=== PATIENT | male | born 1970 | race Caucasian/White ===

== ENCOUNTER 2017-01-19 12:19 | Emergency (ER) | payer OTHER ==
[~2017-01-19] VITALS: Ht 177.8 cm; Wt 113.4 kg
[~2017-01-19 12:19] MED LIST: CYCLOBENZAPRINE10 MG PO; IBUPROFEN600 MG PO; NAPROSYN500 MG PO; NAPROXEN500 MG PO; NORCO 5-325 TA1 EACH PO; TRAMADOL HCL50 MG PO
[2017-01-19] MEDS ORDERED: BACLOFEN20 MG PO (12:44)
[2017-01-19] MEDS ORDERED: METHYLPREDNISOLO4 M1 PO (12:44)
== END 2017-01-19 13:25 | disposition home or self-care (01) ==
LOC: ED 12:19
DX: S39.011A Strain of muscle, fascia and tendon of abdomen, initial encounter (principal); F17.200 Nicotine dependence, unspecified, uncomplicated; X58.XXXA Exposure to other specified factors, initial encounter
CPT/HCPCS: 99283

== ENCOUNTER 2017-04-05 12:35 | Emergency (ER) | payer OTHER ==
[~2017-04-05] VITALS: Ht 177.8 cm; Wt 113.4 kg
[~2017-04-05 12:35] MED LIST changes: +BACLOFEN20 MG PO; +METHYLPREDNISOLO4 M1 PO
[2017-04-05] MEDS ORDERED: NORCO 5-325 TA1 EACH PO (14:50)
[2017-04-05] MEDS ORDERED: ONDANSETRON ODT8 MG PO (16:00)
[2017-04-05] MEDS ORDERED: PROMETHAZINE HC25 M1 PO (16:00)
[2017-04-05] MEDS ORDERED: DICYCLOMINE HCL20 MG PO (16:00)
== END 2017-04-05 16:34 | disposition home or self-care (01) ==
LOC: ED 12:35
DX: R10.13 Epigastric pain (principal); F17.200 Nicotine dependence, unspecified, uncomplicated; Z79.899 Other long term (current) drug therapy
CPT/HCPCS: 80053; 83690; 85025; 96361; 96374; 96375; 96376; 99283; J1170; J2405; J2550; J7030

== ENCOUNTER 2017-04-07 13:13 | Observation (INO) | payer OTHER ==
[~2017-04-07] VITALS: Ht 177.8 cm; Wt 117.1 kg
[~2017-04-07 13:13] MED LIST changes: +DICYCLOMINE HCL20 MG PO; +ONDANSETRON ODT8 MG PO; +PROMETHAZINE HC25 M1 PO
--- NOTE | 2017-04-07 19:15 | NUR ---
SHIFT REPORT RECEIVED FROM THIEN NATHAN. PT IS ALERT/ORIENTED, REPORTS ABDOMINAL PAIN. IVF INFUSING WNL.
--- NOTE | 2017-04-07 19:30 | NUR ---
PT SHIFT REPORT RECIEVED FROM DAY SHIFT RN. ALL QUESTIONS ANSWERED. NO OTHER ISSUES AT THIS TIME. WILL CONTINUE TO CLOSELY MONITOR. PT SITTING UP WATCHING TV IN BED.
--- NOTE | 2017-04-07 20:00 | NUR ---
ASSESSMENT COMPLETED. ALERT/ORIENTED, REPORTS 7/10 ABDOMINAL PAIN AND NAUSEA. PRN ZOFRAN AND 1MG IV DILAUDID ADMINISTERED. LUNGS CLEAR/DIMINISHED THROUGHOUT, RA. HR REGULAR. BOWEL TONES ACTIVE, ABDOMEN IS SOFT AND TENDER. CMS INTACT. PT HAS SCAR/SCAB TO FOREHEAD, OTHERWISE SKIN APPEARS INTACT. PT DENIES FURTHER REQUESTS AT THIS TIME, WILL CONTINUE TO MONITOR.
--- NOTE | 2017-04-07 20:00 | NUR ---
PT SHIFT ASSESSMENT COMPLETED. PT RESTING IN BED. LUNGS CLEAR AND DIMINISHED IN BASES. PT ON CHRONIC OXYGEN CURRENTLY AT HOME AMOUNT OF 2L VIA NC WITH SPO2 98-100%. BOWEL TONES ACTIVE. NO BM AT THIS TIME. EDEMA IS CONTINUING TO IMPROVE. PT REPOSITIONED. CALL LIGHT IN REACH. WILL CONTINUE TO MONTIOR.
--- NOTE | 2017-04-07 21:25 | NUR ---
PT STATES THAT HIS PAIN HAS IMPROVED TO 4/10 AND STATES THAT IT FEELS TOLERABLE AT THIS TIME. FRESH ICE WATER PROVIDED PER REQUEST. PT SITTING UP AND WATCHING TV, DENIES FURTHER REQUESTS AT THIS TIME.
--- NOTE | 2017-04-07 22:24 | NUR ---
ALL MEDICATIONS GIVE. ALL 3 CENTRAL LINE PORTS HEP LOCKED AT THIS TIME. PT IS READY FOR BED. REPOSITIONED FOR COMFORT AND TURNED LIGHTS DOWN AT THIS TIME. CALL LIGHT IN HAND. WILL CONTINUE TO CLOSELY MONITOR.
--- NOTE | 2017-04-07 22:57 | NUR ---
PT CALLED TO REQUEST PAIN MEDICATION, STATES ABDOMINAL PAIN IS 7/10. 1MG IV DILAUDID ADMINISTERED. WILL CONTINUE TO MONITOR.
--- NOTE | 2017-04-07 23:50 | NUR ---
ASSESSMENT COMPLETED. PT STATES THAT PAIN IS IMPROVED SINCE RECEIVING PAIN MEDICATION. DENIES NAUSEA. NO OTHER CHANGES FROM PREVIOUS ASSESSMENT, WILL CONTINUE TO MONITOR.
--- NOTE | 2017-04-08 01:21 | NUR ---
PLACED PT ON 1L O2 VIA NC. WHILE SLEEPING, WOULD BREIFLY DESAT INTO THE 80'S, AND THEN RECOVER. PT STATES HE DOES HAVE SOME SLEEP APNEA, WILL SEE IF 1L KEEPS SATS >90%. WILL CONTINUE TO MONITOR. PT STATES PAIN IS ABOUD 4-5/10 AT THIS TIME, DENIES NEED FOR PAIN MEDICATION AT THIS TIME.
--- NOTE | 2017-04-08 03:05 | NUR ---
PT SLEEPING, RR: 16, SPO2:98% ON 1L VIA NC. NO APPARENT DISTRESS. WILL CONTINUE TO MONITOR.
--- NOTE | 2017-04-08 04:12 | NUR ---
ASSESSMENT COMPLETED. NO CHANGES FROM PREVIOUS ASSESSMENT. PT ACCIDENTALLY PULLED OUT IV ROLLING OVER IN BED, CATHETER TIP INTACT. 20G IV PLACED ON SECOND ATTEMPT IN RIGHT WRIST. PT TOLERATED WELL. PT REPORTS 7/10 ABDOMINAL PAIN, 1MG IV DILAUDID ADMINISTERED. PT DENIES NAUSEA, CHICKEN BROTH PROVIDED PER REQUEST. PT PROVIDED WITH TOOTHBUSH/PASTE FOR AM CARE. PT DENIES FURTHER REQUESTS AT THIS TIME. WILL CONTINUE TO MONITOR.
--- NOTE | 2017-04-08 04:22 | NUR ---
AFTER DRINKING ~100ML OF CHICKEN BROTH PT BEGAN TO VOMIT CLEAR EMESIS, 550ML. PRN ZOFRAN ADMINISTERED. COOL CLOTH PROVIDED. WILL CONTINUE TO MONITOR.
--- NOTE | 2017-04-08 05:39 | NUR ---
PT TRANSFERRED TO MS. AMBULATED WITH SENIOR SOFTWARE TEST ENGINEER, STEADY ON FEET. BELONGINGS WITH PT.
--- NOTE | 2017-04-08 05:52 | NUR ---
0540 - pt transferred to ky room 125 from icu at this time, pt ambuklated from room 130 to room 125 w/o problems, ivf infusing
--- NOTE | 2017-04-08 05:57 | NUR ---
pt medicated with phenergan 12.5mg iv , 200cc emesis, clear phlegm. pt sittin gup in chair. no other c/o pain, healing scabbed over over mid forehead intact
--- NOTE | 2017-04-08 06:33 | NUR ---
PT IN BED. TRANSFERRED TO BED FROM CHAIR W/O ASSIST. NO FURTHER EPISODES OF EMESIS, WATCHING TV
--- NOTE | 2017-04-08 08:30 | NUR ---
PATIENT UP, RATES PAIN 5/10 ON PAIN SCALE IN ABDOMEN. NO EMESIS. APPEARS CALM AND APPROPRIATE. FULL BODY ASSESMENT DONE.
--- NOTE | 2017-04-08 09:42 | NUR ---
PT AWAKE IN BED. FRESH ICE WATER. AM CARE. SET UP FOR SHOWER. [facility]
== END 2017-04-08 11:50 | disposition home or self-care (01) ==
LOC: ED 13:13 → CCU 13:14 → MS 04-08 05:20
PROVIDERS: ADMIT Internal Medicine
DX: R10.9 Unspecified abdominal pain (principal); E80.6 Other disorders of bilirubin metabolism; E86.0 Dehydration; R11.2 Nausea with vomiting, unspecified; F17.200 Nicotine dependence, unspecified, uncomplicated; E66.01 Morbid (severe) obesity due to excess calories; Z68.37 Body mass index [BMI] 37.0-37.9, adult
CPT/HCPCS: 36415; 74177; 76705; 80053; 80074; 81001; 82248; 83605; 83690; 83735; 84100; 85025; 87522; 96361; 96374; 96375; 96376; 99291; G0378; J1170; J2405; J2550; J7030; Q9967

== ENCOUNTER 2017-06-10 11:58 | Emergency (ER) | payer OTHER ==
[~2017-06-10] VITALS: Ht 177.8 cm; Wt 117.1 kg
== END 2017-06-10 12:15 | disposition home or self-care (01) ==
LOC: ED 11:58
DX: M25.511 Pain in right shoulder (principal); V00.121A Fall from non-in-line roller-skates, initial encounter

== ENCOUNTER 2017-07-29 10:19 | Emergency (ER) | payer OTHER ==
[~2017-07-29] VITALS: Ht 177.8 cm; Wt 117.1 kg
[2017-07-29] MEDS ORDERED: KEFLEX500 MG PO (11:15)
[2017-07-29] MEDS ORDERED: NORCO 5-325 TA1 EACH PO (11:17)
== END 2017-07-29 11:25 | disposition home or self-care (01) ==
LOC: ED 10:19
DX: S62.521B Displaced fracture of distal phalanx of right thumb, initial encounter for open fracture (principal); F17.200 Nicotine dependence, unspecified, uncomplicated; W22.8XXA Striking against or struck by other objects, initial encounter
CPT/HCPCS: 73140; 90471; 90715; 99283

== ENCOUNTER 2019-05-11 17:20 | Emergency (ER) | payer OTHER ==
[~2019-05-11] VITALS: Ht 177.8 cm; Wt 109.8 kg
[~2019-05-11 17:20] MED LIST changes: +KEFLEX500 MG PO; +OMEPRAZOLE20 MG PO; +ZOFRAN4 MG PO
[2019-05-11] MEDS ORDERED: MAALOX ADVANCE355 ML PO ×2 (17:33→17:34)
[2019-05-11] MEDS ORDERED: ONDANSETRON ODT8 MG PO (19:30)
== END 2019-05-11 19:50 | disposition home or self-care (01) ==
LOC: ED 17:20
DX: K29.00 Acute gastritis without bleeding (principal); F17.200 Nicotine dependence, unspecified, uncomplicated
CPT/HCPCS: 80053; 83690; 85025; 96374; 99284-25; 99406; J2405; J7030

== ENCOUNTER 2020-01-08 06:24 | Emergency (ER) | payer OTHER ==
[~2020-01-08] VITALS: Ht 177.8 cm; Wt 117.9 kg
[~2020-01-08 06:24] MED LIST changes: +MAALOX ADVANCE355 ML PO
--- NOTE | 2020-01-09 11:00 | EKG ---
[facility] [address] [facility] [place] [address] Signed Normal sinus rhythm with sinus arrhythmia Normal ECG No previous ECGs available Confirmed by ELIE VALADEZ MD ([id number]) on 01/09/2020 10:59:55 AM Electronically Signed By: ELIE VALADEZ MD 01/09/20 1100 PATIENT NAME: TIERRA GONZALEZ Electrocardiogram DATE OF : 70 PHYSICIAN: ELIE VALADEZ MD REPORT #: [id number] REPORT IS CONFIDENTIAL AND NOT TO BE RELEASED WITHOUT AUTHORIZATION
== END 2020-01-08 09:26 | disposition home or self-care (01) ==
LOC: ED 06:24
DX: R11.2 Nausea with vomiting, unspecified (principal); F12.90 Cannabis use, unspecified, uncomplicated; R10.33 Periumbilical pain
CPT/HCPCS: 71045; 80053; 83735; 84484; 85025; 93005; 93010; 96374; 96375; 96376; 99285-25; J1885; J2405; J2765; J7030

== ENCOUNTER 2020-12-30 06:48 | Emergency (ER) | payer OTHER ==
[~2020-12-30] VITALS: Ht 177.8 cm; Wt 117.9 kg
== END 2020-12-30 09:43 | disposition home or self-care (01) ==
LOC: ED 06:48
DX: K40.90 Unilateral inguinal hernia, without obstruction or gangrene, not specified as recurrent (principal); R31.9 Hematuria, unspecified
CPT/HCPCS: 74176; 80053; 81001; 85025; 99284-25

== ENCOUNTER 2021-11-21 07:55 | Day surgery (SDC) | payer OTHER ==
[~2021-11-21] VITALS: Ht 177.8 cm; Wt 111.4 kg
[~2021-11-21 07:55] MED LIST changes: +OMEPRAZOLE20 M1 PO
--- NOTE | 2021-11-21 11:55 | NUR ---
11/21/21 1155 Sheets,Melissa 1149 PT ARRIVED TO PACU ON 10L VIA MASK WITH ORAL AIRWAY IN PLACE, JAW THRUST USED TO MAINTAIN AIRWAY. PT NONAROUSABLE. 1152 PT HEAD TURNED TO SIDE AND HOB INCREASED, JAW THRUST NO LONGER NEEDED TO MAINTAIN AIRWAY. VSS.
--- NOTE | 2021-11-21 12:31 | NUR ---
1220 PATIENT INTO DAY SURGERY. REPORT RECIEVED FROM THIEN STINSON. PATIENT BREATHING EQUAL AND UNLABORED. AWAKE AND ORIENTED. OXYGEN SATURATIONS ABOVE 95 ON ROOM AIR. PATIENT COMPLAINS OF 5/10 PAIN AT SURGICAL SITE. PATIENT DENIES NEEDING PAIN MEDICATION. ICE PACK APPLIED. SCD'S ON. DRESSING CLEAN, DRY AND INTACT. NO QUESTIONS AT THIS TIME. CALL LIGHT WITHIN REACH NO FUTHER NEEDS.
--- NOTE | 2021-11-21 13:25 | NUR ---
1320 PATIENT MET DISCHARGE CRITERIA. IV D/C'D WNL. PATIENT TOLERATED DRESSING SELF. PATIENT WHEELED OUT OF FACILITY TO PRIVATE AUTO AND AWAITING
--- NOTE | 2021-11-21 21:28 | OR ---
[facility] [address] [place], [place] [address] Signed DATE OF OPERATION: 11/21/2021 SURGEON: Sandra Rosas MD PREOPERATIVE DIAGNOSIS: Incarcerated right inguinal hernia on CT scan. POSTOPERATIVE DIAGNOSIS: Moderately large incarcerated indirect right inguinal hernia of fat. PROCEDURE: Right Ventura onlay mesh inguinal herniorrhaphy. ESTIMATED BLOOD LOSS: None. INDICATIONS: Hakan is a 50-year-old obese gentleman, asked to see me actually for both an umbilical and right inguinal hernia. His insurance approved the right inguinal hernia only. 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 He said last summer he stepped off the pavement, felt pain in the groin. By mid December, he said he could not take the pain any longer. He said even lifting the bar stools at the restaurant was too much. He had gone to the emergency room for evaluation. Due to his body habitus, one cannot feel the right inguinal hernia. The CT scan did show fat coming through the deep ring all the way down to the top of the scrotum. He was sent to his primary care provider. In the meantime, he has been unable to work. He said his girlfriend has been supporting him. He said there is simply too much pain in that right groin. In the office, again I could not specifically feel this hernia. I had given him our brochure on hernias and we had reviewed that very carefully. For financial reasons, he is not able to do the umbilical hernia currently. He wanted to proceed with a right inguinal hernia as it is symptomatic and keeping him from work. He understands the difference between a primary suture repair and a mesh repair. We reviewed the expected intraop and postop course. There is risk of surgery including, but not limited to bleeding, infection, scarring, change in contour of the skin, damage to the nerves, ischemic orchitis, recurrent hernias and chronic pain. He had expressed understanding and wished to proceed. DESCRIPTION OF PROCEDURE: I met with Hakan in our preop area. Once again, we discussed the issue of the umbilical Electronically Signed By: SANDRA ROSAS MD 11/21/21 2128 PATIENT NAME: HAKAN GONZALEZ OPERATIVE REPORT DATE OF : 70 REPORT #: [id number] PHYSICIAN: SANDRA ROSAS MD PCP: COLLEEN HERNANDEZ PAC REPORT IS CONFIDENTIAL AND NOT TO BE RELEASED WITHOUT AUTHORIZATION [facility] [address] [place], [place] [address] Signed and the right inguinal hernia. He wanted only to proceed with a right inguinal hernia. We had marked the consent appropriately together. After this, we marked his right groin with our pen. He was then taken in the operating room and placed in the supine position under general endotracheal tube anesthesia. He was given preoperative antibiotics along with subcutaneous heparin. SCDs were utilized. He was prepped and draped in the usual sterile fashion. A standard oblique incision was made over the right groin and carried down through the tissue bluntly and with the cautery. The external oblique fascia was opened along its length and developed medially and laterally. He had a very weak inguinal floor. However, on careful dissection of the cord structures at the level of deep ring, we found that he had a very large amount of fat coming through the deep ring and indeed it extended all the way down past the pubic tubercle. It took a few minutes to very carefully separate that from the pampiniform plexus and the other cord structures including the vas deferens. Once we had at all the way free back to the deep ring, it was suture ligated twice with 2-0 PDS suture. The distal portion of that fat was amputated and passed off the field. We then reconstructed the floor similar to a Bassini herniorrhaphy. We used #1 Prolene starting at the pubic tubercle and brought the conjoined tendon over to the ilioinguinal ligament all the way up to the deep ring. Just the tip of my finger could be inserted at the deep ring. We then cut our flat piece of Prolene mesh to cover the inguinal floor and we held in place medially and laterally with running #1 Prolene suture. Again, laterally to the inguinal ligament and medially over the rectus muscle and all the way around. We used one stitch to bring the mesh back together near the deep ring, so again no undue tension. Local anesthetic was then injected in the wound. The wound was irrigated and suctioned out until clear. The external oblique fascia was closed with a running 2-0 PDS suture. Mick's fascia was reapproximated with a running 3-0 Monocryl suture. The dermis was reapproximated with 3-0 subcuticular Monocryl sutures. The skin edges were reapproximated with running 5-0 fast absorbing plain gut suture. Dry gauze and tape were then applied. Hakan was then awakened from his anesthesia, extubated in the OR, and taken to recovery room in stable condition. Sandra Rosas MD ALB/MODL /[id number] cc: LIZZ Neely Electronically Signed By: SANDRA ROSAS MD 11/21/21 2128 PATIENT NAME: HAKAN GONZALEZ OPERATIVE REPORT DATE OF : 70 REPORT #: [id number] PHYSICIAN: SANDRA ROASS MD PCP: COLLEEN HERNANDEZ PAC REPORT IS CONFIDENTIAL AND NOT TO BE RELEASED WITHOUT AUTHORIZATION [address] [place], [place] [address] Signed Sandra Rosas MD Copies: SANDRA ROSAS MD ~ Electronically Signed By: SANDRA ROSAS MD 11/21/21 2128 PATIENT NAME: HAKAN GONZALEZ OPERATIVE REPORT DATE OF : 70 REPORT #: [id number] PHYSICIAN: SANDRA ROSAS MD PCP: COLLEEN HERNANDEZ PAC REPORT IS CONFIDENTIAL AND NOT TO BE RELEASED WITHOUT AUTHORIZATION
== END 2021-11-21 13:20 | disposition home or self-care (01) ==
LOC: DS 07:55
PROVIDERS: ATTEND Colon & Rectal Surgery
PROC: 0YU50JZ Supplement Right Inguinal Region with Synthetic Substitute, Open Approach (ICD-10-PCS; principal; 2021-11-21 08:55)
DX: K40.30 Unilateral inguinal hernia, with obstruction, without gangrene, not specified as recurrent (principal); K42.0 Umbilical hernia with obstruction, without gangrene; K21.9 Gastro-esophageal reflux disease without esophagitis
CPT/HCPCS: C1781; J0330; J0690; J1100; J1644; J1885; J2250; J2405; J2704; J2765; J3010; J7121

== ENCOUNTER 2025-03-28 13:32 | Emergency (ER) | payer OTHER ==
[~2025-03-28] VITALS: Ht 152.4 cm; Wt 121.0 kg
[2025-03-28] MEDS ORDERED: ASPIRIN 81 MG CHEW PO ONE (13:45)
[2025-03-28 13:57] LABS: BASOPHILS 0.3 % (0.2-1.2); EOSINOPHILS 1.8 % (0.8-7.0); LYMPHOCYTES 27.7 % (21.8-53.1); MCH 30.5 PG (25.7-32.2); MCHC 34.4 g/dL (32.3-36.5); MCV 88.7 fL (79.0-92.2); MONOCYTES 7.4 % (5.3-12.2); NEUTROPHILS 62.5 % (34.0-67.9); RBC 4.88 M/uL (4.63-6.08)
[2025-03-28 14:16] LABS: ALT (SGPT) 40.0 U/L (14-59); AST (SGOT) 22.0 U/L (15-37); GLOMERULAR FILTRATION RATE,EST 95.0 mL/min (>60); PROTEIN, TOTAL 7.7 g/dL (6.4-8.2); UREA NITROGEN 8.0 mg/dL (7-18)
[2025-03-28 14:56] VITALS: BP 146/118
--- NOTE | 2025-03-28 17:54 | EKG ---
[facility] [address] [facility] [place] [address] Signed Normal sinus rhythm Normal ECG When compared with ECG of 12-NOV-2021 12:29, No significant change was found Confirmed by Bjorn Arenas DO ([id number]) on 03/28/2025 5:54:36 PM Electronically Signed By: BJORN ARENAS DO 03/28/25 1754 PATIENT NAME: TIERRA GONZALEZ Electrocardiogram DATE OF : 70 PHYSICIAN: BJORN ARENAS DO REPORT #: [id number] REPORT IS CONFIDENTIAL AND NOT TO BE RELEASED WITHOUT AUTHORIZATION
== END 2025-03-28 14:55 | disposition home or self-care (01) ==
LOC: ED 13:32
PROVIDERS: Emergency Medicine
DX: R07.89 Other chest pain (principal); H57.04 Mydriasis
CPT/HCPCS: 36415; 71045; 80053; 83735; 84484; 85025; 93005; 93010; 99285-25; A9270